=== PATIENT | male | born 1935 | race Two or more races ===

== ENCOUNTER 2021-11-24 19:33 | Inpatient (IN) | payer MEDICARE, OTHER ==
[~2021-11-24] VITALS: Ht 170.2 cm; Wt 66.5 kg
[2021-11-24 20:42] LABS: Basophils # (auto) 0 10 ^3/uL (0-0.2); Basophils % (auto) 0.3 % (0.0-2.0); Eosinophils # (auto) 0 10 ^3/uL (0-0.8); Hematocrit 38.7 % (41.0-53.0); Hemoglobin 12.9 g/dL (13.5-17.5); Lymphocytes # (auto) 0.6 10 ^3/uL (0.4-5.4); Mean Corpuscular Hgb Conc. 33.3 g/dL (32.0-36.0); Mean Corpuscular Volume 93.2 fL (80.0-100.0); Monocytes # (auto) 1.2 10 ^3/uL (0-1.3); Monocytes % (auto) 8.4 % (0.0-12.0); Neutrophils # (auto) 12.1 10 ^3/uL (1.6-8.6); Neutrophils % (auto) 87.3 % (37.0-80.0); Nucleated Red Blood Cells % 0.1 %; Red Blood Cells 4.15 10^6/uL (4.5-5.90); Red Cell Distribution Width 12.8 % (11.8-14.3); White Blood Cell 13.9 10^3/uL (4.4-10.8)
[2021-11-24 20:57] LABS: Albumin 2.7 g/dL (3.4-5.0); Calcium 8.1 mg/dL (8.5-10.1); Magnesium 2.5 mg/dL (1.6-2.6); Potassium 3.9 mmol/L (3.5-5.1)
[2021-11-24 21:01] LABS: BUN/Creatinine Ratio 21.5
[2021-11-24 22:51] LABS: Urine Bacteria FEW /hpf (None Seen); Urine Blood Negative /uL (Negative); Urine Hyaline Cast MANY /lpf (0 - 2); Urine Mucus FEW (None Seen); Urine Specific Gravity 1.024 (1.001-1.035); Urine WBC 35 /hpf (0 - 3)
[2021-11-24] MEDS ORDERED: AZITHROMYCIN 500MG/ 250ML 250 ML IV ONE (23:45)
[2021-11-24] MEDS ORDERED: cefTRIAXone 1GM/50ML D5W 50 ML IV ONE (23:45)
[2021-11-25] MEDS ORDERED: BENZOCAINE (DENTAL) 20 % SPRAY 60ML MT ONE (01:30)
[2021-11-25] MEDS ORDERED: LIDOCAINE HCL 2% TOP JELLY 5ML TOP ONE (01:30)
[2021-11-25] MEDS ORDERED: GLUCAGON HYDROCHLORIDE (RDNA) 1 MG VIAL ONE (01:53)
[2021-11-25] MEDS ORDERED: NITROGLYCERIN 0.4 MG SL TAB SL PRN (02:30)
[2021-11-25] MEDS ORDERED: ONDANSETRON HCL 4 MG/2 ML VIAL IV PRN (02:30)
[2021-11-25] MEDS ORDERED: MORPHINE SULFATE 4 MG/ML SYR/VIAL IV PRN (02:30)
[2021-11-25] MEDS ORDERED: MORPHINE SULFATE INJECTION 2 MG/ML SYRG IV PRN (02:30)
[2021-11-25 03:47] LABS: Lactic Acid w/Reflex 4.5 mmol/L (0.4-2.0)
[2021-11-25] MEDS: SODIUM CHLORIDE 0.9% 1,000 ML IV SCH ×2 (04:05→15:26)
[2021-11-25 09:19] VITALS: BP 116/56
[2021-11-25] MEDS: ZINC SULFATE 220mg CAP or TAB PO SCH ×2 (09:29→09:43)
[2021-11-25] MEDS: cefTRIAXone 1GM/50ML D5W 50 ML IV SCH (09:29)
[2021-11-25 10:00] VITALS: BP 116/56
[2021-11-25] MEDS ORDERED: DexAMETHasone SOD PHOS 10MG/1ML VIAL INJ IV SCH (10:00)
[2021-11-25] MEDS: AZITHROMYCIN 500MG/ 250ML 250 ML IV SCH (10:45)
[2021-11-25] MEDS ORDERED: MEMA1TAB5 PO (12:20)
[2021-11-25] MEDS ORDERED: ENOXAPARIN SOD 40 MG/0.4 ML SYRINGE SC ONE (12:45)
[2021-11-25 12:53] VITALS: BP 106/58
[2021-11-25 16:25] VITALS: BP 127/64
[2021-11-25] MEDS: ALBUTEROL SULF HFA 90MCG INH 200DOSE IN PRN (21:48)
[2021-11-25 22:00] VITALS: BP 143/70
[2021-11-26 05:00] VITALS: BP 122/59
[2021-11-26 05:59] LABS: Basophils # (auto) 0 10 ^3/uL (0-0.2); Eosinophils # (auto) 0 10 ^3/uL (0-0.8); Hematocrit 30.4 % (41.0-53.0); Hemoglobin 10.3 g/dL (13.5-17.5); Lymphocytes % (auto) 10.5 % (10.0-50.0); Mean Corpuscular Hemoglobin 31.5 pg (28.0-32.0); Mean Corpuscular Volume 92.5 fL (80.0-100.0); Monocytes # (auto) 0.8 10 ^3/uL (0-1.3); Monocytes % (auto) 8.9 % (0.0-12.0); Neutrophils # (auto) 7.5 10 ^3/uL (1.6-8.6); Neutrophils % (auto) 80.6 % (37.0-80.0); Red Blood Cells 3.28 10^6/uL (4.5-5.90); Red Cell Distribution Width 12.7 % (11.8-14.3); White Blood Cell 9.4 10^3/uL (4.4-10.8)
[2021-11-26] MEDS: SODIUM CHLORIDE 0.9% 1,000 ML IV SCH ×2 (06:00→12:51)
[2021-11-26 06:11] LABS: Albumin 2.3 g/dL (3.4-5.0); BUN/Creatinine Ratio 51.9; Calcium 8.4 mg/dL (8.5-10.1); Potassium 3.9 mmol/L (3.5-5.1)
[2021-11-26 06:14] LABS: Bilirubin, Total 0.5 mg/dL (0.2-1.0); Total Protein 4.9 g/dL (6.4-8.2)
[2021-11-26] MEDS: ALBUTEROL SULF HFA 90MCG INH 200DOSE IN PRN (07:10)
[2021-11-26 08:37] VITALS: BP 125/54
[2021-11-26] MEDS: cefTRIAXone 1GM/50ML D5W 50 ML IV SCH (09:00)
[2021-11-26] MEDS ORDERED: ENOXAPARIN SOD 40 MG/0.4 ML SYRINGE SC SCH (10:00)
[2021-11-26] MEDS: AZITHROMYCIN 500MG/ 250ML 250 ML IV SCH (10:00)
[2021-11-26] MEDS: ZINC SULFATE 220mg CAP or TAB PO SCH (10:00)
[2021-11-26 12:30] VITALS: BP 132/58
[2021-11-26] MEDS ORDERED: LEVO750T64 PO (14:24)
[2021-11-26] MEDS ORDERED: LACT10SO70 PO (14:24)
[2021-11-26] MEDS ORDERED: POLY33504 PO (14:24)
[2021-11-26] MEDS ORDERED: ALBUAER3 IN (14:24)
[2021-11-26 16:30] VITALS: BP 142/66
== END 2021-11-26 18:30 | disposition home health service (06) | DRG 393 ==
LOC: EDBD 19:33 → ER 19:38 → TELE 11-25 02:26 → TELE-EAST 11-25 08:49
PROVIDERS: ADMIT Nurse Practitioner; ATTEND Internal Medicine
DX: K40.00 Bilateral inguinal hernia, with obstruction, without gangrene, not specified as recurrent (principal); U07.1 COVID-19; J12.82 Pneumonia due to coronavirus disease 2019; N17.0 Acute kidney failure with tubular necrosis; N39.0 Urinary tract infection, site not specified; E44.0 Moderate protein-calorie malnutrition; N40.0 Benign prostatic hyperplasia without lower urinary tract symptoms; F03.90 Unspecified dementia, unspecified severity, without behavioral disturbance, psychotic disturbance, mood disturbance, and anxiety; Z68.23 Body mass index [BMI] 23.0-23.9, adult
CPT/HCPCS: 36415; 71045; 74018; 74176; 80053; 81001; 82728; 83605; 83690; 83735; 85025; 85379; 87426; 93005; 94640; 96365; 96368; 97163; G0378; J0696; J1100

== ENCOUNTER 2023-11-28 01:56 | Inpatient (IN) | payer BC, MEDICARE ==
[~2023-11-28] VITALS: Ht 165.1 cm; Wt 66.9 kg
[~2023-11-28 01:56] MED LIST: ALBUAER3 IN; LACT10SO70 PO; LEVO750T40 PO; MEMA1TAB5 PO; POLY33504 PO
[2023-11-28 03:32] LABS: INR 1.1 (0.9-1.15); Partial Thromboplastin Time 24.8 SEC (24.5-34.5); Prothrombin Time 11.5 sec (9.3-11.8)
[2023-11-28 03:38] LABS: Alanine Aminotransferase 19 U/L (7-40); Albumin 4.1 g/dL (3.2-4.8); Alkaline Phosphatase 141 U/L (46-116); Anion Gap 4 (5-15); Aspartate Aminotransferase 20 U/L (13-40); BUN/Creatinine Ratio 25.9 (10.0-20.0); Blood Urea Nitrogen 22 mg/dL (9-23); Calcium 9.1 mg/dL (8.7-10.4); Carbon Dioxide 30 mmol/L (20-30); Chloride 108 mmol/L (98-107); Glucose 138 mg/dL (74-106); Lipase 24 U/L (12-53); Potassium 4.2 mmol/L (3.5-5.1); Sodium 142 mmol/L (136-145)
[2023-11-28 03:39] LABS: Bilirubin, Total 0.7 mg/dL (0.2-1.0); Total Protein 6.9 g/dL (5.7-8.2)
[2023-11-28 04:43] LABS: Basophils # (auto) 0 10 ^3/uL (0-0.2); Basophils % (auto) 0.1 % (0.0-2.0); Eosinophils # (auto) 0.1 10 ^3/uL (0-0.8); Hemoglobin 13.9 g/dL (13.5-17.5); Lymphocytes # (auto) 0.7 10 ^3/uL (0.4-5.4); Lymphocytes % (auto) 5.8 % (10.0-50.0); Mean Corpuscular Hemoglobin 32.3 pg (28.0-32.0); Mean Corpuscular Volume 97.7 fL (80.0-100.0); Monocytes # (auto) 0.8 10 ^3/uL (0-1.3); Monocytes % (auto) 6.3 % (0.0-12.0); Neutrophils # (auto) 10.5 10 ^3/uL (1.6-8.6); Neutrophils % (auto) 86.8 % (37.0-80.0); Red Cell Distribution Width 12.6 % (11.8-14.3); White Blood Cell 12.1 10^3/uL (4.4-10.8)
[2023-11-28 05:00] VITALS: PULSE 79; RESP 20; O2SAT 94
[2023-11-28] MEDS: SODIUM CHLORIDE 0.9% 1,000 ML IV ONE (05:48)
[2023-11-28] MEDS: MORPHINE SULFATE 4 MG/ML SYR/VIAL IV ONE (06:02)
[2023-11-28 06:18] LABS: INR 1.11 (0.9-1.15); Prothrombin Time 11.6 sec (9.3-11.8)
[2023-11-28] MEDS: ONDANSETRON HCL 4 MG/2 ML VIAL IV ONE (06:47)
[2023-11-28] MEDS: MORPHINE SULFATE INJ 2 MG/ml SYRG IV ONE (06:49)
[2023-11-28 07:30] VITALS: PULSE 69; RESP 22; O2SAT 98
[2023-11-28] MEDS ORDERED: ONDANSETRON HCL 4 MG/2 ML VIAL IV PRN (09:30)
[2023-11-28] MEDS ORDERED: MORPHINE SULFATE INJ 2 MG/ml SYRG IV PRN (09:30)
[2023-11-28] MEDS ORDERED: DOCUSATE SOD 100 MG CAP PO PRN (09:30)
[2023-11-28 09:57] LABS: Urine Bacteria NONE SEEN /hpf (None Seen); Urine Blood Negative /uL (Negative); Urine Clarity Clear (Clear); Urine Color Yellow (Yellow); Urine Hyaline Cast FEW /lpf (0 - 2); Urine Mucus FEW (None Seen); Urine Protein, UAD TRACE (Negative); Urine Specific Gravity 1.029 (1.001-1.035); Urine Urobilinogen Normal (Negative); Urine WBC 1 /hpf (0 - 3)
[2023-11-28] MEDS ORDERED: PANTOPRAZOLE 40 MG TAB PO SCH (10:00)
[2023-11-28] MEDS: cefTRIAXone 1GM/50ML D5W 50 ML IV ONE (10:43)
[2023-11-28] MEDS: SODIUM CHLORIDE 0.9% 1,000 ML IV SCH (10:47)
[2023-11-28] MEDS: LACTULOSE 20Gm/30ML SOLN PO ONE (10:48)
[2023-11-28] MEDS: PANTOPRAZOLE 40 MG TAB PO ONE (10:49)
[2023-11-28] MEDS: HYDROcodone-ACET 5/325MG TAB PO PRN (14:50)
[2023-11-28 17:14] VITALS: RESP 18
[2023-11-28 20:00] VITALS: PULSE 67; RESP 16
[2023-11-28 22:00] VITALS: BP 12/70; PULSE 67; RESP 16; TEMP 98.4; O2SAT 97
[2023-11-29] VITALS (7 sets, daily range): BP systolic 113–122; BP diastolic 40–57; PULSE 61–78; RESP 12–18; TEMP 97.4–98.4; O2SAT 92–98
[2023-11-29 06:39] LABS: Basophils # (auto) 0 10 ^3/uL (0-0.2); Basophils % (auto) 0.3 % (0.0-2.0); Eosinophils # (auto) 0.1 10 ^3/uL (0-0.8); Eosinophils % (auto) 0.7 % (0.0-7.0); Hematocrit 40.6 % (41.0-53.0); Hemoglobin 13.8 g/dL (13.5-17.5); Lymphocytes # (auto) 1.1 10 ^3/uL (0.4-5.4); Lymphocytes % (auto) 11.7 % (10.0-50.0); Mean Corpuscular Hemoglobin 32.5 pg (28.0-32.0); Mean Corpuscular Hgb Conc. 33.8 g/dL (32.0-36.0); Mean Corpuscular Volume 96.1 fL (80.0-100.0); Monocytes # (auto) 0.8 10 ^3/uL (0-1.3); Monocytes % (auto) 8.5 % (0.0-12.0); Neutrophils # (auto) 7.2 10 ^3/uL (1.6-8.6); Neutrophils % (auto) 78.8 % (37.0-80.0); Red Blood Cells 4.23 10^6/uL (4.5-5.90); Red Cell Distribution Width 12.4 % (11.8-14.3); White Blood Cell 9.1 10^3/uL (4.4-10.8)
[2023-11-29 06:42] LABS: Alanine Aminotransferase 15 U/L (7-40); Albumin 3.7 g/dL (3.2-4.8); Alkaline Phosphatase 131 U/L (46-116); Anion Gap 6 (5-15); Aspartate Aminotransferase 25 U/L (13-40); BUN/Creatinine Ratio 18.9 (10.0-20.0); Blood Urea Nitrogen 17 mg/dL (9-23); Calcium 9.2 mg/dL (8.5-10.1); Carbon Dioxide 29 mmol/L (20-30); Chloride 108 mmol/L (98-107); Glucose 104 mg/dL (74-106); Potassium 4.3 mmol/L (3.5-5.1); Sodium 143 mmol/L (136-145)
[2023-11-29 06:43] LABS: Total Protein 6.3 g/dL (5.7-8.2)
[2023-11-29] MEDS: cefTRIAXone 1GM/50ML D5W 50 ML IV SCH (09:35)
[2023-11-29] MEDS: PANTOPRAZOLE 40 MG TAB PO SCH (09:37)
[2023-11-29] MEDS: LACTULOSE 20Gm/30ML SOLN PO SCH (09:38)
[2023-11-30] VITALS (7 sets, daily range): BP systolic 100–121; BP diastolic 39–51; PULSE 61–78; RESP 16–19; TEMP 97.9–99.4; O2SAT 93–100
[2023-11-30] MEDS ORDERED: Ensure HIGH Protein Chocolate 8oz Bottle PO SCH (12:00)
[2023-11-30] MEDS: Ensure HIGH Protein Chocolate 8oz Bottle PO SCH (12:00)
[2023-11-30 12:20] LABS: COVID19 ANTIGEN SOFIA FIA NEGATIVE (NEGATIVE)
[2023-11-30] MEDS: DOCUSATE SOD 100 MG CAP PO SCH (21:23)
[2023-12-01] VITALS (7 sets, daily range): BP systolic 115–149; BP diastolic 42–60; PULSE 63–84; RESP 16–19; TEMP 98–100; O2SAT 92–99
[2023-12-01 15:28] LABS: COVID19 ANTIGEN SOFIA FIA NEGATIVE (NEGATIVE)
[2023-12-01] MEDS: ACETAMINOPHEN 325 MG TAB PO PRN (18:25)
[2023-12-01 22:21] LABS: Urine Bacteria NONE SEEN /hpf (None Seen); Urine Blood Negative /uL (Negative); Urine Clarity Clear (Clear); Urine Color Yellow (Yellow); Urine Mucus FEW (None Seen); Urine Protein, UAD Negative (Negative); Urine Specific Gravity 1.017 (1.001-1.035); Urine Urobilinogen Normal (Negative); Urine WBC <1 /hpf (0 - 3); Urine pH 5.5 (5.0-8.0)
[2023-12-02 05:00] VITALS: BP 117/58; PULSE 69; RESP 17; TEMP 97.9; O2SAT 96
[2023-12-02 07:30] VITALS: O2SAT 98
[2023-12-02 09:00] VITALS: BP 119/40; PULSE 54; RESP 19; TEMP 97.8; O2SAT 98
== END 2023-12-02 11:25 | DRG 395 ==
LOC: EDBD 01:56 → ER 01:56 → OVERFLOW 09:30 → WEST WING 16:50
PROVIDERS: ADMIT Nurse Practitioner Family; ATTEND Family Medicine
DX: K40.00 Bilateral inguinal hernia, with obstruction, without gangrene, not specified as recurrent (principal); K52.9 Noninfective gastroenteritis and colitis, unspecified; F03.90 Unspecified dementia, unspecified severity, without behavioral disturbance, psychotic disturbance, mood disturbance, and anxiety; N40.0 Benign prostatic hyperplasia without lower urinary tract symptoms; R62.7 Adult failure to thrive; Z20.822 Contact with and (suspected) exposure to COVID-19; Z68.22 Body mass index [BMI] 22.0-22.9, adult
CPT/HCPCS: 36415; 74176; 80053; 81001; 83605; 83690; 85025; 85610; 85730; 86850; 86900; 86901; 87040; 87426; 93005; 96361; 96365; 96366; 96375; 97110; 97116; 97163; 97530; G0378; J2405

== ENCOUNTER 2024-05-17 12:17 | Inpatient (IN) | payer MEDICARE, BC ==
[~2024-05-17] VITALS: Ht 177.8 cm; Wt 62.4 kg
[~2024-05-17 12:17] MED LIST changes: -LEVO750T40 PO
[2024-05-17 14:40] VITALS: PULSE 83; RESP 20; O2SAT 96
[2024-05-17 16:04] LABS: Basophils # (auto) 0 10 ^3/uL (0-0.2); Basophils % (auto) 0.2 % (0.0-2.0); Eosinophils # (auto) 0 10 ^3/uL (0-0.8); Eosinophils % (auto) 0.3 % (0.0-7.0); Hematocrit 39.2 % (41.0-53.0); Lymphocytes # (auto) 1.7 10 ^3/uL (0.4-5.4); Lymphocytes % (auto) 11.2 % (10.0-50.0); Mean Corpuscular Hemoglobin 31.8 pg (28.0-32.0); Mean Corpuscular Hgb Conc. 33.1 g/dL (32.0-36.0); Mean Corpuscular Volume 96.2 fL (80.0-100.0); Monocytes # (auto) 1.5 10 ^3/uL (0-1.3); Monocytes % (auto) 10.4 % (0.0-12.0); Neutrophils # (auto) 11.5 10 ^3/uL (1.6-8.6); Neutrophils % (auto) 77.9 % (37.0-80.0); Nucleated Red Blood Cells % 0.1 %; Red Blood Cells 4.08 10^6/uL (4.5-5.90); Red Cell Distribution Width 13.3 % (11.8-14.3); White Blood Cell 14.8 10^3/uL (4.4-10.8)
[2024-05-17 16:25] LABS: Alanine Aminotransferase 15 U/L (7-40); Albumin 3.4 g/dL (3.2-4.8); Alkaline Phosphatase 114 U/L (46-116); Anion Gap 6 (5-15); Aspartate Aminotransferase 15 U/L (13-40); Blood Urea Nitrogen 27 mg/dL (9-23); Calcium 8.7 mg/dL (8.7-10.4); Carbon Dioxide 26 mmol/L (20-30); Chloride 107 mmol/L (98-107); Glucose 96 mg/dL (74-106); Magnesium 1.8 mg/dL (1.6-2.6); Potassium 4.4 mmol/L (3.5-5.1); Sodium 139 mmol/L (136-145)
[2024-05-17 16:26] LABS: Bilirubin, Total 1.3 mg/dL (0.2-1.0); Total Protein 5.8 g/dL (5.7-8.2)
[2024-05-17] MEDS: SODIUM CHLORIDE 0.9% 1,000 ML IV ONE (18:21)
[2024-05-17 18:23] LABS: Urine Bacteria MOD /hpf (None Seen); Urine Blood 2+ /uL (Negative); Urine Clarity Turbid (Clear); Urine Color Yellow (Yellow); Urine Mucus FEW (None Seen); Urine Protein, UAD 1+ (Negative); Urine Specific Gravity 1.026 (1.001-1.035); Urine Urobilinogen Normal (Negative); Urine WBC 290 /hpf (0 - 3); Urine WBC Clumps PRESENT /hpf (None Seen); Urine pH 5.5 (5.0-9.0)
[2024-05-17] MEDS: cefTRIAXone 1GM/50ML D5W 50 ML IV ONE (18:53)
[2024-05-17] MEDS ORDERED: DOCUSATE SOD 100 MG CAP PO PRN (19:30)
[2024-05-17] MEDS ORDERED: ONDANSETRON HCL 4 MG/2 ML VIAL IV PRN (19:30)
[2024-05-17] MEDS ORDERED: HYDROcodone-ACET 5/325MG TAB PO PRN (19:30)
[2024-05-17 22:12] VITALS: PULSE 60; RESP 16; O2SAT 97
[2024-05-18] MEDS: LACTATED RINGER'S 1,000 ML IV ONE (02:05)
[2024-05-18] MEDS: SODIUM CHLOR 0.9% PF (SALINE LOCK) 10ML VIAL/SYR IV SCH (02:05)
[2024-05-18 07:22] VITALS: PULSE 58; RESP 18; O2SAT 98
[2024-05-18] MEDS: FAMOTIDINE 20 MG TAB PO SCH (09:29)
[2024-05-18] MEDS: cefTRIAXone 1GM/50ML D5W 50 ML IV SCH (09:29)
[2024-05-18] MEDS: ENOXAPARIN SOD 40 MG/0.4 ML SYRINGE SC SCH (09:29)
[2024-05-18] MEDS: SODIUM CHLORIDE 0.9% 1,000 ML IV SCH (12:09)
[2024-05-18 17:00] VITALS: BP 138/45; PULSE 81; RESP 18; TEMP 99.7; O2SAT 95
[2024-05-18 20:00] VITALS: PULSE 76; RESP 18; O2SAT 96
[2024-05-18 21:00] VITALS: BP 127/46; PULSE 76; RESP 18; TEMP 100.4; O2SAT 96
[2024-05-19] VITALS (7 sets, daily range): BP systolic 106–137; BP diastolic 42–59; PULSE 60–84; RESP 16–20; TEMP 98.3–100.5; O2SAT 92–98
[2024-05-19] MEDS: HYDROmorphone HCL 2 MG/ML VL/or syr IV PRN (02:27)
[2024-05-19 06:41] LABS: Basophils # (auto) 0 10 ^3/uL (0-0.2); Basophils % (auto) 0.3 % (0.0-2.0); Eosinophils # (auto) 0.2 10 ^3/uL (0-0.8); Eosinophils % (auto) 1.8 % (0.0-7.0); Hematocrit 38.4 % (41.0-53.0); Hemoglobin 13.2 g/dL (13.5-17.5); Lymphocytes # (auto) 1.4 10 ^3/uL (0.4-5.4); Lymphocytes % (auto) 16.2 % (10.0-50.0); Mean Corpuscular Hemoglobin 32.3 pg (28.0-32.0); Mean Corpuscular Hgb Conc. 34.3 g/dL (32.0-36.0); Mean Corpuscular Volume 93.9 fL (80.0-100.0); Monocytes # (auto) 1.2 10 ^3/uL (0-1.3); Monocytes % (auto) 14.1 % (0.0-12.0); Neutrophils # (auto) 5.7 10 ^3/uL (1.6-8.6); Neutrophils % (auto) 67.6 % (37.0-80.0); Red Blood Cells 4.09 10^6/uL (4.5-5.90); Red Cell Distribution Width 12.9 % (11.8-14.3); White Blood Cell 8.4 10^3/uL (4.4-10.8)
[2024-05-19 06:59] LABS: Alanine Aminotransferase 11 U/L (7-40); Albumin 3.5 g/dL (3.2-4.8); Alkaline Phosphatase 100 U/L (46-116); Anion Gap 7 (5-15); Aspartate Aminotransferase 17 U/L (13-40); Bilirubin, Total 0.9 mg/dL (0.2-1.0); Blood Urea Nitrogen 19 mg/dL (9-23); Calcium 8.8 mg/dL (8.7-10.4); Carbon Dioxide 24 mmol/L (20-30); Chloride 109 mmol/L (98-107); Glucose 96 mg/dL (74-106); Potassium 4.1 mmol/L (3.5-5.1); Sodium 140 mmol/L (136-145)
[2024-05-19 07:00] LABS: Total Protein 6.1 g/dL (5.7-8.2)
[2024-05-19] MEDS: TAMSULOSIN HYDROCHLORIDE 0.4 MG CAP PO SCH (17:20)
[2024-05-20 05:00] VITALS: BP 100/61; PULSE 43; RESP 18; TEMP 97.7; O2SAT 98
[2024-05-20 07:40] LABS: Anion Gap 9 (5-15); Carbon Dioxide 25 mmol/L (20-30); Chloride 107 mmol/L (98-107); Potassium 3.6 mmol/L (3.5-5.1); Sodium 141 mmol/L (136-145)
[2024-05-20 07:41] LABS: Calcium 8.3 mg/dL (8.7-10.4)
[2024-05-20 07:46] LABS: BUN/Creatinine Ratio 24.2 (10.0-20.0); Basophils # (auto) 0 10 ^3/uL (0-0.2); Basophils % (auto) 0.3 % (0.0-2.0); Blood Urea Nitrogen 15 mg/dL (9-23); Eosinophils # (auto) 0.6 10 ^3/uL (0-0.8); Eosinophils % (auto) 8.8 % (0.0-7.0); Glucose 98 mg/dL (74-106); Hematocrit 32.2 % (41.0-53.0); Hemoglobin 11.3 g/dL (13.5-17.5); Lymphocytes # (auto) 1.6 10 ^3/uL (0.4-5.4); Lymphocytes % (auto) 21.7 % (10.0-50.0); Mean Corpuscular Hemoglobin 33.1 pg (28.0-32.0); Mean Corpuscular Volume 94.5 fL (80.0-100.0); Monocytes # (auto) 1.1 10 ^3/uL (0-1.3); Neutrophils # (auto) 3.9 10 ^3/uL (1.6-8.6); Neutrophils % (auto) 54.2 % (37.0-80.0); Nucleated Red Blood Cells % 0.1 %; Red Blood Cells 3.41 10^6/uL (4.5-5.90); Red Cell Distribution Width 12.8 % (11.8-14.3); White Blood Cell 7.3 10^3/uL (4.4-10.8)
[2024-05-20 08:00] VITALS: PULSE 48; RESP 18; O2SAT 92
[2024-05-20 09:20] VITALS: BP 108/52; PULSE 48; RESP 18; TEMP 98; O2SAT 92
[2024-05-20 12:21] VITALS: BP 118/56; PULSE 66; RESP 20; TEMP 97.6; O2SAT 93
[2024-05-20 16:03] VITALS: BP 123/55; PULSE 72; RESP 20; TEMP 98.4; O2SAT 98
[2024-05-20 22:00] VITALS: BP 111/51; PULSE 79; RESP 19; TEMP 98.5; O2SAT 97
[2024-05-21] VITALS (8 sets, daily range): BP systolic 126–146; BP diastolic 50–71; PULSE 59–85; RESP 16–21; TEMP 97.9–101; O2SAT 94–95
[2024-05-21] MEDS: ACETAMINOPHEN 325 MG TAB PO PRN (21:57)
[2024-05-22 01:33] VITALS: BP 98/55; PULSE 59; RESP 19; TEMP 98.9; O2SAT 95
[2024-05-22 05:00] VITALS: BP 125/57; PULSE 64; RESP 19; TEMP 98; O2SAT 95
[2024-05-22 09:00] VITALS: BP 122/46; PULSE 57; RESP 17; TEMP 98; O2SAT 95
[2024-05-22 11:41] LABS: Basophils # (auto) 0 10 ^3/uL (0-0.2); Basophils % (auto) 0.3 % (0.0-2.0); Eosinophils # (auto) 0.3 10 ^3/uL (0-0.8); Hematocrit 33.6 % (41.0-53.0); Hemoglobin 11.6 g/dL (13.5-17.5); Lymphocytes # (auto) 1.4 10 ^3/uL (0.4-5.4); Lymphocytes % (auto) 23.6 % (10.0-50.0); Mean Corpuscular Hemoglobin 32.3 pg (28.0-32.0); Mean Corpuscular Hgb Conc. 34.6 g/dL (32.0-36.0); Mean Corpuscular Volume 93.4 fL (80.0-100.0); Monocytes # (auto) 0.9 10 ^3/uL (0-1.3); Neutrophils # (auto) 3.4 10 ^3/uL (1.6-8.6); Neutrophils % (auto) 56.1 % (37.0-80.0); Nucleated Red Blood Cells % 0.1 %; Red Cell Distribution Width 12.9 % (11.8-14.3)
[2024-05-22 11:56] LABS: Alanine Aminotransferase 12 U/L (7-40); Alkaline Phosphatase 81 U/L (46-116); Anion Gap 6 (5-15); Aspartate Aminotransferase 13 U/L (13-40); Bilirubin, Total 0.6 mg/dL (0.2-1.0); Calcium 8.4 mg/dL (8.7-10.4); Carbon Dioxide 24 mmol/L (20-30); Chloride 108 mmol/L (98-107); Glucose 100 mg/dL (74-106); Potassium 3.4 mmol/L (3.5-5.1); Sodium 138 mmol/L (136-145); Total Protein 5.3 g/dL (5.7-8.2)
[2024-05-22 11:59] LABS: BUN/Creatinine Ratio 10.6 (10.0-20.0); Blood Urea Nitrogen < 5 mg/dL (9-23)
[2024-05-22 13:00] VITALS: BP 124/89; PULSE 57; RESP 16; TEMP 98.4; O2SAT 96
[2024-05-22 17:00] VITALS: BP 126/64; PULSE 107; RESP 17; TEMP 98.3; O2SAT 95
[2024-05-22 21:30] VITALS: BP 137/72; PULSE 78; RESP 19; TEMP 98.1; O2SAT 94
[2024-05-23] VITALS (9 sets, daily range): BP systolic 121–152; BP diastolic 39–72; PULSE 45–95; RESP 17–22; TEMP 98.4–100.8; O2SAT 90–97
[2024-05-23] MEDS: FINASTERIDE 5 MG TAB PO SCH (12:18)
[2024-05-23] MEDS: POTASSIUM EFFERVESENT TAB 25 MEQ PO ONE (12:25)
== END 2024-05-23 22:38 | DRG 871 ==
LOC: ER 12:17 → EDBD 12:17 → OVERFLOW 19:31 → CENTRAL 05-18 14:15
PROVIDERS: ADMIT Internal Medicine; ATTEND Internal Medicine
DX: A41.51 Sepsis due to Escherichia coli [E. coli] (principal); G93.41 Metabolic encephalopathy; N12 Tubulo-interstitial nephritis, not specified as acute or chronic; N39.0 Urinary tract infection, site not specified; E86.0 Dehydration; F03.90 Unspecified dementia, unspecified severity, without behavioral disturbance, psychotic disturbance, mood disturbance, and anxiety; D69.6 Thrombocytopenia, unspecified; N40.0 Benign prostatic hyperplasia without lower urinary tract symptoms; Z86.73 Personal history of transient ischemic attack (TIA), and cerebral infarction without residual deficits
CPT/HCPCS: 36415; 70450; 71045; 76775; 80048; 80053; 81001; 82962; 83605; 83735; 84484; 85025; 87081; 87086; 87088; 87186; 92610; 93005; 97110; 97116; 97163; 97530; G0378

== ENCOUNTER 2024-07-17 14:10 | Inpatient (IN) | payer MEDICARE, BC, MEDICAID ==
[~2024-07-17] VITALS: Ht 170.2 cm; Wt 56.3 kg
[2024-07-17] MEDS: SODIUM CHLORIDE 0.9% 1,000 ML IVB ONE (14:30)
[2024-07-17 15:00] LABS: Basophils # (auto) 0 10 ^3/uL (0-0.2); Basophils % (auto) 0.1 % (0.0-2.0); Eosinophils # (auto) 0 10 ^3/uL (0-0.8); Eosinophils % (auto) 0.1 % (0.0-7.0); Hematocrit 39.9 % (41.0-53.0); Hemoglobin 13.2 g/dL (13.5-17.5); Lymphocytes # (auto) 1.1 10 ^3/uL (0.4-5.4); Lymphocytes % (auto) 8.5 % (10.0-50.0); Mean Corpuscular Volume 93.8 fL (80.0-100.0); Monocytes # (auto) 0.9 10 ^3/uL (0-1.3); Monocytes % (auto) 7.3 % (0.0-12.0); Neutrophils # (auto) 10.9 10 ^3/uL (1.6-8.6); Platelet Count (auto) 254 10^3/uL (140-450); Red Blood Cells 4.26 10^6/uL (4.5-5.90); Red Cell Distribution Width 15.1 % (11.8-14.3)
[2024-07-17] MEDS: AZITHROMYCIN 500MG/ 250ML 250 ML IV ONE (15:05)
[2024-07-17] MEDS: cefTRIAXone 1GM/50ML D5W 50 ML IV ONE (15:06)
[2024-07-17 15:16] LABS: Alanine Aminotransferase 51 U/L (7-40); Albumin 3.7 g/dL (3.2-4.8); Alkaline Phosphatase 87 U/L (46-116); Anion Gap 11 (5-15); Aspartate Aminotransferase 54 U/L (13-40); BUN/Creatinine Ratio 67.9 (10.0-20.0); Blood Alcohol 3.1 mg/dL (<10); Blood Urea Nitrogen 57 mg/dL (9-23); Calcium 9.4 mg/dL (8.7-10.4); Carbon Dioxide 22 mmol/L (20-30); Chloride 117 mmol/L (98-107); Glucose 128 mg/dL (74-106); Lactic Acid w/Reflex 2.1 mmol/L (0.4-2.0); Potassium 4.2 mmol/L (3.5-5.1); Sodium 150 mmol/L (136-145)
[2024-07-17 15:17] LABS: Bilirubin, Total 0.9 mg/dL (0.2-1.0); Total Protein 6.6 g/dL (5.7-8.2)
[2024-07-17 15:48] VITALS: PULSE 80; RESP 16; O2SAT 99
[2024-07-17] MEDS: SODIUM CHLORIDE 0.9% 1,000 ML IV ONE (16:14)
[2024-07-17 16:17] LABS: Urine Bacteria FEW /hpf (None Seen); Urine Blood 2+ /uL (Negative); Urine Clarity Ex.Turbid (Clear); Urine Color Light-Orange (Yellow); Urine Mucus FEW (None Seen); Urine Protein, UAD 1+ (Negative); Urine Urobilinogen 3 mg/dL (Negative); Urine WBC 1029 /hpf (0 - 3); Urine WBC Clumps PRESENT /hpf (None Seen); Urine pH 6.5 (5.0-9.0)
[2024-07-17] MEDS ORDERED: DOCUSATE SOD 100 MG CAP PO PRN (16:30)
[2024-07-17] MEDS ORDERED: ONDANSETRON HCL 4 MG/2 ML VIAL IV PRN (16:30)
[2024-07-17] MEDS ORDERED: ACETAMINOPHEN 325 MG TAB PO PRN (16:30)
[2024-07-17] MEDS: LACTATED RINGER'S 1,000 ML IV SCH (17:24)
[2024-07-17] MEDS ORDERED: NITROGLYCERIN 0.4 MG SL TAB SL PRN (17:45)
[2024-07-17] MEDS ORDERED: MORPHINE SULFATE INJ 2 MG/ml SYRG IV PRN (17:45)
[2024-07-17 19:30] VITALS: PULSE 80; RESP 18; O2SAT 98
[2024-07-17] MEDS: MEMANTINE HCL 5 MG TAB PO SCH (22:00)
[2024-07-17] MEDS: DOXYCYCLINE 100MG/250ML 250 ML IV SCH (22:32)
[2024-07-18 05:08] LABS: Basophils # (auto) 0 10 ^3/uL (0-0.2); Basophils % (auto) 0.2 % (0.0-2.0); Eosinophils # (auto) 0 10 ^3/uL (0-0.8); Eosinophils % (auto) 0.3 % (0.0-7.0); Hematocrit 37.6 % (41.0-53.0); Hemoglobin 12.4 g/dL (13.5-17.5); Lymphocytes # (auto) 1.2 10 ^3/uL (0.4-5.4); Lymphocytes % (auto) 10.2 % (10.0-50.0); Mean Corpuscular Hemoglobin 31.5 pg (28.0-32.0); Mean Corpuscular Hgb Conc. 32.9 g/dL (32.0-36.0); Mean Corpuscular Volume 95.8 fL (80.0-100.0); Monocytes # (auto) 1.2 10 ^3/uL (0-1.3); Neutrophils # (auto) 9.6 10 ^3/uL (1.6-8.6); Neutrophils % (auto) 79.3 % (37.0-80.0); Platelet Count (auto) 199 10^3/uL (140-450); Red Blood Cells 3.92 10^6/uL (4.5-5.90); White Blood Cell 12.1 10^3/uL (4.4-10.8)
[2024-07-18 05:33] LABS: Alanine Aminotransferase 45 U/L (7-40); Albumin 3.4 g/dL (3.2-4.8); Alkaline Phosphatase 79 U/L (46-116); Anion Gap 11 (5-15); Aspartate Aminotransferase 51 U/L (13-40); BUN/Creatinine Ratio 78.1 (10.0-20.0); Blood Urea Nitrogen 50 mg/dL (9-23); Carbon Dioxide 21 mmol/L (20-30); Chloride 118 mmol/L (98-107); Glucose 122 mg/dL (74-106); Potassium 3.8 mmol/L (3.5-5.1); Sodium 150 mmol/L (136-145)
[2024-07-18 05:34] LABS: Bilirubin, Total 0.7 mg/dL (0.2-1.0); Total Protein 6.1 g/dL (5.7-8.2)
[2024-07-18 07:30] VITALS: PULSE 68; RESP 14; O2SAT 100
[2024-07-18] MEDS: cefTRIAXone 1GM/50ML D5W 50 ML IV SCH (09:22)
[2024-07-18] MEDS: IOHEXOL 300 MG/ML 100ML BOTTLE IJ ONE (12:25)
[2024-07-18] MEDS: D5W 5% 1,000 ML IV SCH (13:25)
[2024-07-18 16:40] VITALS: BP 120/64; PULSE 86; RESP 16; TEMP 98.4; O2SAT 96
[2024-07-18 16:56] VITALS: BP 120/64; PULSE 86; RESP 16; TEMP 98.4; O2SAT 96
[2024-07-18 20:00] VITALS: PULSE 80; RESP 16
[2024-07-18 21:00] VITALS: BP 130/40; PULSE 75; RESP 22; TEMP 98.9; O2SAT 98
[2024-07-18] MEDS: D5W/SOD CHL 0.45% 1,000 ML IV SCH (23:23)
[2024-07-19] VITALS (7 sets, daily range): BP systolic 108–160; BP diastolic 42–102; PULSE 72–94; RESP 16–22; TEMP 98.1–99.4; O2SAT 92–100
[2024-07-19 06:14] LABS: Basophils # (auto) 0 10 ^3/uL (0-0.2); Basophils % (auto) 0.1 % (0.0-2.0); Eosinophils # (auto) 0.1 10 ^3/uL (0-0.8); Eosinophils % (auto) 1.5 % (0.0-7.0); Hematocrit 33.5 % (41.0-53.0); Hemoglobin 11.2 g/dL (13.5-17.5); Lymphocytes # (auto) 1.5 10 ^3/uL (0.4-5.4); Lymphocytes % (auto) 16.6 % (10.0-50.0); Mean Corpuscular Hemoglobin 31.6 pg (28.0-32.0); Mean Corpuscular Hgb Conc. 33.5 g/dL (32.0-36.0); Mean Corpuscular Volume 94.4 fL (80.0-100.0); Monocytes # (auto) 0.8 10 ^3/uL (0-1.3); Monocytes % (auto) 8.4 % (0.0-12.0); Neutrophils # (auto) 6.6 10 ^3/uL (1.6-8.6); Neutrophils % (auto) 73.4 % (37.0-80.0); Platelet Count (auto) 195 10^3/uL (140-450); Red Blood Cells 3.55 10^6/uL (4.5-5.90); Red Cell Distribution Width 15.2 % (11.8-14.3)
[2024-07-19 06:23] LABS: Alanine Aminotransferase 45 U/L (7-40); Alkaline Phosphatase 73 U/L (46-116); Anion Gap 7 (5-15); Aspartate Aminotransferase 54 U/L (13-40); BUN/Creatinine Ratio 95.8 (10.0-20.0); Blood Urea Nitrogen 46 mg/dL (9-23); Calcium 8.5 mg/dL (8.7-10.4); Carbon Dioxide 21 mmol/L (20-30); Chloride 120 mmol/L (98-107); Glucose 113 mg/dL (74-106); Potassium 3.3 mmol/L (3.5-5.1); Sodium 148 mmol/L (136-145)
[2024-07-19 06:24] LABS: Bilirubin, Total 0.5 mg/dL (0.2-1.0); Total Protein 5.5 g/dL (5.7-8.2)
[2024-07-19] MEDS: D5W/SOD CHL 0.45%/KCL 40MEQ 1,000 ML IV SCH (07:57)
[2024-07-19] MEDS ORDERED: AZITHROMYCIN 500MG/ 250ML 250 ML IV SCH (10:00)
[2024-07-19 12:10] LABS: Chloride 120 mmol/L (98-107); Potassium 3.5 mmol/L (3.5-5.1); Sodium 149 mmol/L (136-145)
[2024-07-19 12:11] LABS: Anion Gap 7 (5-15); Carbon Dioxide 22 mmol/L (20-30)
[2024-07-19 12:12] LABS: Calcium 8.7 mg/dL (8.7-10.4)
[2024-07-19 12:16] LABS: Glucose 136 mg/dL (74-106)
[2024-07-19 12:17] LABS: BUN/Creatinine Ratio 83.3 (10.0-20.0); Blood Urea Nitrogen 45 mg/dL (9-23)
[2024-07-19] MEDS: cefTRIAXone 1GM/50ML D5W 50 ML IV ONE (12:47)
[2024-07-19] MEDS: POTASSIUM CHL 20MEQ/100ML 100 ML IV SCH (13:35)
[2024-07-19] MEDS: D5W/SOD CHL 0.45% 1,000 ML IV SCH (19:40)
[2024-07-20] VITALS (8 sets, daily range): BP systolic 99–126; BP diastolic 46–59; PULSE 68–97; RESP 14–20; TEMP 97.9–100.4; O2SAT 95–98
[2024-07-20 06:00] LABS: Basophils # (auto) 0 10 ^3/uL (0-0.2); Basophils % (auto) 0.2 % (0.0-2.0); Eosinophils # (auto) 0.2 10 ^3/uL (0-0.8); Hemoglobin 11.6 g/dL (13.5-17.5); Lymphocytes # (auto) 1.1 10 ^3/uL (0.4-5.4); Mean Corpuscular Hemoglobin 31.6 pg (28.0-32.0); Mean Corpuscular Hgb Conc. 33.2 g/dL (32.0-36.0); Mean Corpuscular Volume 95.3 fL (80.0-100.0); Monocytes # (auto) 0.7 10 ^3/uL (0-1.3); Monocytes % (auto) 9.1 % (0.0-12.0); Neutrophils # (auto) 6.1 10 ^3/uL (1.6-8.6); Neutrophils % (auto) 75.7 % (37.0-80.0); Nucleated Red Blood Cells % 0.1 %; Platelet Count (auto) 195 10^3/uL (140-450); Red Blood Cells 3.67 10^6/uL (4.5-5.90); White Blood Cell 8.1 10^3/uL (4.4-10.8)
[2024-07-20 06:10] LABS: Chloride 121 mmol/L (98-107); Potassium 3.6 mmol/L (3.5-5.1); Sodium 149 mmol/L (136-145)
[2024-07-20 06:11] LABS: Anion Gap 7 (5-15); Calcium 8.7 mg/dL (8.7-10.4); Carbon Dioxide 21 mmol/L (20-30)
[2024-07-20 06:16] LABS: BUN/Creatinine Ratio 60.4 (10.0-20.0); Glucose 100 mg/dL (74-106)
[2024-07-20 06:19] LABS: Blood Urea Nitrogen 29 mg/dL (9-23)
[2024-07-20] MEDS ORDERED: CEFD300C2 PO (10:21)
[2024-07-20] MEDS: HYDROcodone-ACET 5/325MG TAB PO PRN (20:36)
[2024-07-21] VITALS (7 sets, daily range): BP systolic 111–126; BP diastolic 49–67; PULSE 69–87; RESP 16–20; TEMP 36.7; O2SAT 96–100
[2024-07-21 06:27] LABS: Chloride 122 mmol/L (98-107); Potassium 3.4 mmol/L (3.5-5.1); Sodium 149 mmol/L (136-145)
[2024-07-21 06:28] LABS: Anion Gap 5 (5-15); Calcium 8.2 mg/dL (8.7-10.4); Carbon Dioxide 22 mmol/L (20-31)
[2024-07-21 06:33] LABS: BUN/Creatinine Ratio 68.1 (10.0-20.0); Blood Urea Nitrogen 32 mg/dL (9-23); Glucose 121 mg/dL (74-106)
[2024-07-21] MEDS: D5W 5% 1,000 ML IV SCH (09:21)
[2024-07-21] MEDS: POTASSIUM CHL 20MEQ/100ML 100 ML IV ONE (11:02)
[2024-07-21 12:05] LABS: Basophils # (auto) 0 10 ^3/uL (0-0.2); Basophils % (auto) 0.1 % (0.0-2.0); Eosinophils # (auto) 0.1 10 ^3/uL (0-0.8); Hematocrit 31.1 % (41.0-53.0); Hemoglobin 10.3 g/dL (13.5-17.5); Lymphocytes # (auto) 1.3 10 ^3/uL (0.4-5.4); Lymphocytes % (auto) 16.8 % (10.0-50.0); Mean Corpuscular Hemoglobin 31.4 pg (28.0-32.0); Mean Corpuscular Volume 95.4 fL (80.0-100.0); Monocytes # (auto) 0.8 10 ^3/uL (0-1.3); Monocytes % (auto) 10.2 % (0.0-12.0); Neutrophils # (auto) 5.4 10 ^3/uL (1.6-8.6); Neutrophils % (auto) 71.9 % (37.0-80.0); Platelet Count (auto) 192 10^3/uL (140-450); Red Blood Cells 3.26 10^6/uL (4.5-5.90); Red Cell Distribution Width 15.1 % (11.8-14.3); White Blood Cell 7.5 10^3/uL (4.4-10.8)
== END 2024-07-21 17:40 | disposition hospice, home (50) | DRG 871 ==
LOC: EDBD 14:10 → ER 14:10 → TELE 17:39 → TELE-WESTW 07-18 16:51
PROVIDERS: ADMIT Internal Medicine; ATTEND Internal Medicine
DX: A41.9 Sepsis, unspecified organism (principal); G93.41 Metabolic encephalopathy; N39.0 Urinary tract infection, site not specified; E87.0 Hyperosmolality and hypernatremia; E86.0 Dehydration; F03.90 Unspecified dementia, unspecified severity, without behavioral disturbance, psychotic disturbance, mood disturbance, and anxiety; R73.9 Hyperglycemia, unspecified; N40.0 Benign prostatic hyperplasia without lower urinary tract symptoms; E87.6 Hypokalemia; Z66 Do not resuscitate
CPT/HCPCS: 36415; 36600; 70450; 71045; 71250; 80048; 80053; 80320; 81001; 82607; 82805; 83036; 83605; 83735; 83880; 83930; 84443; 84484; 85025; 87040; 87086; 93005; 99291; G0378; J3480; J3490